=== PATIENT | male | born 1975 | race Caucasian/White ===

== ENCOUNTER 2018-01-28 12:03 | Emergency (ER) | payer MEDICAID ==
[~2018-01-28] VITALS: Ht 167.6 cm; Wt 115.0 kg
[2018-01-28 12:05] VITALS: BP 138/70
== END 2018-01-28 13:25 | disposition home or self-care (01) ==
LOC: ED 12:31
DX: G56.02 Carpal tunnel syndrome, left upper limb (principal); G56.01 Carpal tunnel syndrome, right upper limb; M94.0 Chondrocostal junction syndrome [Tietze]
CPT/HCPCS: 36415; 71046; 82375; 99284; 99285

== ENCOUNTER 2018-05-15 19:29 | Emergency (ER) | payer MEDICAID ==
[~2018-05-15] VITALS: Ht 167.6 cm; Wt 113.9 kg
[2018-05-15 19:30] VITALS: BP 160/98
== END 2018-05-15 20:21 | disposition home or self-care (01) ==
LOC: ED 20:15
DX: M13.112 Monoarthritis, not elsewhere classified, left shoulder (principal)
CPT/HCPCS: 99283

== ENCOUNTER 2018-10-20 22:31 | Emergency (ER) | payer MEDICAID ==
[~2018-10-20] VITALS: Ht 167.6 cm; Wt 117.0 kg
[2018-10-20 22:42] VITALS: BP 162/112
== END 2018-10-21 00:23 | disposition home or self-care (01) ==
LOC: ED 23:59
DX: S53.402A Unspecified sprain of left elbow, initial encounter (principal); M19.90 Unspecified osteoarthritis, unspecified site; G56.00 Carpal tunnel syndrome, unspecified upper limb; W22.8XXA Striking against or struck by other objects, initial encounter; Y93.89 Activity, other specified; Y92.098 Other place in other non-institutional residence as the place of occurrence of the external cause; Y99.8 Other external cause status
CPT/HCPCS: 99283

== ENCOUNTER 2019-12-20 01:59 | Emergency (ER) | payer MEDICAID ==
[~2019-12-20] VITALS: Ht 167.6 cm; Wt 123.0 kg
[2019-12-20 02:02] VITALS: BP 145/91
--- NOTE | 2019-12-20 02:10 | NUR ---
unable to see eye chart for visual acuities.
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
--- NOTE | 2019-12-20 02:36 | NUR ---
Provider at bedside. Report to Raysa CORTEZ.
[2019-12-20] MEDS ORDERED: FLUORESCEIN OPHTHALMIC 1 MG STRIP ONE (02:59)
[2019-12-20] MEDS ORDERED: PROPARACAINE OPHTH 0.5%, 15ML ONE (02:59)
[2019-12-20] MEDS ORDERED: PROPARACAINE OPHTH 0.5%, 15ML EACHEYE ONE (03:00)
[2019-12-20] MEDS ORDERED: FLUORESCEIN OPHTHALMIC 1 MG STRIP EACHEYE ONE (03:00)
== END 2019-12-20 05:42 | disposition home or self-care (01) ==
LOC: ED 05:00
DX: S05.12XA Contusion of eyeball and orbital tissues, left eye, initial encounter (principal); S05.11XA Contusion of eyeball and orbital tissues, right eye, initial encounter; S09.90XA Unspecified injury of head, initial encounter; H11.33 Conjunctival hemorrhage, bilateral; M95.0 Acquired deformity of nose; F10.129 Alcohol abuse with intoxication, unspecified; M19.90 Unspecified osteoarthritis, unspecified site; G56.00 Carpal tunnel syndrome, unspecified upper limb; Y90.9 Presence of alcohol in blood, level not specified; X58.XXXA Exposure to other specified factors, initial encounter; Y93.89 Activity, other specified; Y92.098 Other place in other non-institutional residence as the place of occurrence of the external cause; Y99.8 Other external cause status
CPT/HCPCS: 70450; 70486; 99285

== ENCOUNTER 2021-02-15 20:32 | Emergency (ER) | payer MEDICAID ==
[~2021-02-15] VITALS: Ht 167.6 cm; Wt 120.1 kg
[2021-02-15 21:58] LABS: BASOPHILS % (AUTO) 1 % (0-1); EOSINOPHILS % (AUTO) 2 % (1-7); LYMPHOCYTES % (AUTO) 34 % (22-44); MEAN CORPUSCULAR HEMOGLOBIN 32.1 pg (27.5-34.5); MEAN CORPUSCULAR HGB CONC 33.8 g/dL (33.2-36.2); MEAN PLATELET VOLUME 7.7 fL (7.4-10.4); MONOCYTES % (AUTO) 11 % (2-9); NEUTROPHILS % (AUTO) 52 % (42-75); PLATELET COUNT 281 x10^3/uL (130-400); RED BLOOD COUNT 5.38 x10^6/uL (4.38-5.82); RED CELL DISTRIBUTION WIDTH 13.5 % (9.4-14.8)
[2021-02-15] MEDS ORDERED: ASPIRIN 81 MG TABLET CHEW PO ONE (22:00)
[2021-02-15 22:10] LABS: ALBUMIN 3.5 g/dL (3.4-5.0); ANION GAP 6 mmol/L (5-15); CALCIUM 8.7 mg/dL (8.5-10.1); CHLORIDE 104 mmol/L (98-107)
[2021-02-15 22:16] LABS: ALANINE AMINOTRANSFERASE 32 U/L (12-78); ALKALINE PHOSPHATASE 86 U/L (45-117); BILIRUBIN,TOTAL 0.4 mg/dL (0.2-1.0); CREATININE 1.03 mg/dL (0.7-1.3); TOTAL PROTEIN 7.8 g/dL (6.4-8.2); TROPONIN I < 0.015 ng/mL (0.000-0.045)
--- NOTE | 2021-02-15 23:04 | NUR ---
HORSER UP: PT. TO ROOM FROM LOBBY AT THIS TIME.
[2021-02-15] MEDS ORDERED: ASPIRIN 81 MG TABLET CHEW ONE (23:12)
--- NOTE | 2021-02-15 23:46 | NUR ---
PT REPORT RECEIVING 4 BABY ASPIRIN AT URGENT CARE.
[2021-02-16 01:07] VITALS: BP 145/86
--- NOTE | 2021-02-16 01:07 | NUR ---
Patient given discharge instructions and they have confirmed that they understand the instructions. Patient ambulatory with steady gait. NAD and reports feeling better, all questions answered appropriately, denies additional needs at this time. No personal belongings left in room after discharge.
== END 2021-02-16 01:09 | disposition home or self-care (01) ==
LOC: ED 23:59
DX: R07.2 Precordial pain (principal); R06.02 Shortness of breath; R42 Dizziness and giddiness; I10 Essential (primary) hypertension; K21.9 Gastro-esophageal reflux disease without esophagitis; Z86.73 Personal history of transient ischemic attack (TIA), and cerebral infarction without residual deficits; Z87.891 Personal history of nicotine dependence; Z91.048 Other nonmedicinal substance allergy status
CPT/HCPCS: 36415; 71045; 80053; 83880; 84484; 85025; 93005; 99285; 99406